=== PATIENT | male | born 1950 | race Caucasian/White ===

== ENCOUNTER 2024-02-08 10:11 | Emergency (ER) | payer MEDICARE, MEDICAID ==
[~2024-02-08] VITALS: Ht 180.3 cm; Wt 97.7 kg
[2024-02-08] MEDS ORDERED: RIVA10TA PO (10:16)
[2024-02-08] MEDS ORDERED: AMLO2.5T96 PO (10:16)
[2024-02-08 10:17] VITALS: BP 154/99; PULSE 92; RESP 18; TEMP 98.2; O2SAT 99
[2024-02-08] MEDS: ACETAMINOPHEN 500 MG TABLET PO ONE (12:01)
== END 2024-02-08 12:07 | disposition home or self-care (01) ==
LOC: EMS 10:14
DX: S83.91XA Sprain of unspecified site of right knee, initial encounter (principal); I10 Essential (primary) hypertension; Z79.01 Long term (current) use of anticoagulants; Z79.899 Other long term (current) drug therapy; W19.XXXA Unspecified fall, initial encounter; Y93.89 Activity, other specified; Y92.89 Other specified places as the place of occurrence of the external cause; Y99.8 Other external cause status
CPT/HCPCS: 99283